=== PATIENT | male | born 1995 | race Caucasian/White ===

== ENCOUNTER 2017-06-04 13:01 | Emergency (ER) | payer OTHER ==
[2017-06-04 13:28] VITALS: BP 143/72; PULSE 101; RESP 18; TEMP 98.6
--- NOTE | 2017-06-04 13:44 | ED ---
ENT HPI - General Chief complaint: ENT Stated complaint: Sore Throat Time Seen by Provider: 06/04/17 13:30 Source: patient, RN notes reviewed, old records reviewed Mode of arrival: ambulatory Limitations: no limitations - History of Present Illness Initial comments: This patient is a 21-year-old male presents emergency departments a chief complaint of sore throat and some upper gum pain for the past 3 days. He reports he's does not see a dentist regularly. He reports that he is had no fever or chills. He states that he's had no cough or any other upper respiratory symptoms. This is Flexeril in upper gum pain. He states that he called off work today to come here for further evaluation. Patient denies any recent fever, chills, shortness of breath, chest pain, back pain, abdominal pain , nausea vomiting, numbness or tingling, dysuria or hematuria, constipation or diarrhea, headaches or visual changes, or any other current symptoms - Related Data Previous Rx's Medication Instructions Recorded Penicillin V Potassium [Pen Vee K] 500 mg PO QID #28 tablet 06/04/17 Allergies Allergy/AdvReac Type Severity Reaction Status Date / Time No Known Allergies Allergy Verified 06/04/17 13:28 Review of Systems ROS Statement: Those systems with pertinent positive or pertinent negative responses have been documented in the HPI. ROS Other: All systems not noted in ROS Statement are negative. Past Medical History Past Medical History: No Reported History History of Any Multi-Drug Resistant Organisms: None Reported Past Surgical History: No Surgical Hx Reported Past Psychological History: No Psychological Hx Reported Smoking Status: Current every day smoker Past Alcohol Use History: Occasional Past Drug Use History: None Reported General Exam - General Exam Comments Initial Comments: 21-year-old male. No distress. Limitations: no limitations General appearance: alert, in no apparent distress Head exam: Present: atraumatic, normocephalic, normal inspection Eye exam: Present: normal appearance, PERRL, EOMI. Absent: scleral icterus, conjunctival injection, periorbital swelling ENT exam: Present: normal exam, normal oropharynx (Patient has poor dentition and multiple areas of dental caries. Over teeth 8 and 9 the gums in the posterior aspect of these teeth have some swelling and erythema. No significant abscess noted at this time, however I do believe that there is a start of an abscess at this time.), mucous membranes moist Neck exam: Present: normal inspection. Absent: tenderness, meningismus, lymphadenopathy Respiratory exam: Present: normal lung sounds bilaterally. Absent: respiratory distress, wheezes, rales, rhonchi, stridor Course Vital Signs 06/04/17 13:27 Temperature 98.6 F Pulse Rate 101 H Respiratory 18 Rate Blood Pressure 143/72 O2 Sat by Pulse 99 Oximetry Medical Decision Making - Medical Decision Making This patient is a 21-year-old male chief complaint of sore throat for approximately 3 days. He appears to have the possibility of the start of an abscess behind tooth #89. I will start the patient on Pen-Vee K. Discussed taking Motrin for pain and blistering rinses. Given dental clinic information. Discussed following up with the dental clinic or primary care provider. All questions were answered and return parameters were discussed. Disposition Clinical Impression: Dental infection Disposition: HOME SELF-CARE Condition: Good Instructions: Dental Abscess (ED) Additional Instructions: [facility] [address] [place] [address] [phone] (existing clients only) For new clients: [phone] 1st consult: $50 (includes Xrays) Usually 30% less then private dentist for visits after. [employer] Have to pay $50 for Xrays anmd rest is covered. [phone] Prescriptions: Penicillin V Potassium [Pen Vee K] 500 mg PO QID #28 tablet Referrals: Brain Martines MD [Primary Care Provider] - 1-2 days Time of Disposition: 13:39
== END 2017-06-04 13:55 | disposition home or self-care (01) ==
LOC: EC 13:01
DX: K04.7 Periapical abscess without sinus (principal); F17.200 Nicotine dependence, unspecified, uncomplicated
CPT/HCPCS: 99283